=== PATIENT | female | born 1995 | race Caucasian/White ===

== ENCOUNTER 2017-01-28 13:49 | Inpatient (IN) | payer BC, MEDICAID ==
[2017-01-28] MEDS ORDERED: Misoprostol 200 MCG Tab PO PRN (14:10)
[2017-01-28] MEDS ORDERED: Butorphanol 1 MG/ML SDV IVPUSH PRN (14:10)
[2017-01-28] MEDS ORDERED: Methylergonovine 0.2 MG/1 ML Amp IM PRN (14:10)
[2017-01-28] MEDS ORDERED: Sodium Chloride 0.9% 10 ML Syringe FLUSH PRN (14:10)
[2017-01-28] MEDS ORDERED: Terbutaline 1 MG/ML SDV SUBCUT PRN (14:10)
[2017-01-28] MEDS ORDERED: Sodium Chloride 0.9% 2.5 ML Syringe FLUSH PRN (14:10)
[2017-01-28] MEDS ORDERED: Nalbuphine 10 MG/1 ML Vial IVPUSH PRN (14:10)
[2017-01-28] MEDS ORDERED: Carboprost Tromethamine 250 MCG/1 ML Amp IM PRN (14:10)
[2017-01-28] MEDS ORDERED: Calcium Gluconate 10% 1 GM/10 ML SDV IV PRN (14:10)
[2017-01-28] MEDS ORDERED: Magnesium Sulfate/Water 4 GM in Premix Bag 1 BAG IV ONE (14:10)
[2017-01-28] MEDS ORDERED: Lidocaine 1% 50 ML MDV INJECT PRN (14:10)
[2017-01-28] MEDS ORDERED: Water For Irrigation,Sterile 1,000 ML Container IRR PRN (14:10)
[2017-01-28] MEDS ORDERED: Oxytocin/Lactated Ringers 30 UNIT/500 ML BAG IV SCH ×2 (14:15)
[2017-01-28 15:03] LABS: CHLORIDE,CL 112 mmol/L (98-110); SODIUM,NA 138 mmol/L (136-146)
[2017-01-28] MEDS: Sodium Chloride 0.9% 1,000 ML IV SCH (15:04)
[2017-01-28] MEDS: Magnesium Sulfate/Water 40 GM/1,000 ML BAG IV SCH (15:18)
[2017-01-28] MEDS ORDERED: hydrOXYzine Pamoate 25 MG Cap PO PRN (18:09)
[2017-01-28] MEDS ORDERED: Acetaminophen 500 MG Tab PO PRN (22:39)
--- NOTE | 2017-01-29 04:28 | PCM.PREANE ---
Preanesthetic Assessment - Anesthesia/Transfusion/Family Hx Anesthesia History: Prior Anesthesia Without Reaction Transfusion History: No Prior Transfusion(s) - Review of Systems General: No Symptoms Pulmonary: No Symptoms Cardiovascular: No Symptoms Gastrointestinal: No symptoms Neurological: No Symptoms Other: Reports: None - Physical Assessment Height: 5 ft 9 in Weight: 215 kg ASA Class: 2 Mental Status: Alert & Oriented x3 Airway Class: Mallampati = 2 Dentition: Reports: Normal Dentition Thyro-Mental Finger Breadths: 3 Mouth Opening Finger Breadths: 3 ROM/Head Extension: Full Lungs: Clear to auscultation, Normal respiratory effort Cardiovascular: Regular Rate, Regular Rhythm - Lab Values: Laboratory Last Values WBC 10.84 K/uL (4.0-11.0) 01/28/17 14:24 RBC 3.64 M/uL (4.30-5.90) L 01/28/17 14:24 Hgb 10.5 g/dL (12.0-16.0) L 01/28/17 14:24 Hct 30.7 % (36.0-46.0) L 01/28/17 14:24 MCV 84.3 fL (80.0-98.0) 01/28/17 14:24 MCH 28.8 pg (27.0-32.0) 01/28/17 14:24 MCHC 34.2 g/dL (31.0-37.0) 01/28/17 14:24 RDW Std Deviation 39.3 fl (28.0-62.0) 01/28/17 14:24 RDW Coeff of Ryley 13 % (11.0-15.0) 01/28/17 14:24 Plt Count 214 K/uL (150-400) 01/28/17 14:24 MPV 12.30 fL (7.40-12.00) H 01/28/17 14:24 Nucleated RBC % 0.0 /100WBC 01/28/17 14:24 Nucleated RBCs # 0 K/uL 01/28/17 14:24 Sodium 138 mmol/L (136-146) 01/28/17 14:24 Potassium 3.9 mmol/L (3.5-5.1) 01/28/17 14:24 Chloride 112 mmol/L (98-110) H 01/28/17 14:24 Carbon Dioxide 17 mmol/L (21-31) L 01/28/17 14:24 BUN 13 mg/dL (6.0-23.0) 01/28/17 14:24 Creatinine 0.7 mg/dL (0.6-1.5) 01/28/17 14:24 Est Cr Clr Drug Dosing 92.85 mL/min 01/28/17 14:24 Estimated GFR (MDRD) > 60.0 ml/min 01/28/17 14:24 Glucose 76 mg/dL (60-110) 01/28/17 14:24 Uric Acid 5.6 mg/dL (2.1-6.2) 01/28/17 14:24 Calcium 8.9 mg/dL (8.8-10.8) 01/28/17 14:24 Magnesium 4.2 mEq/L (1.5-2.3) H 01/29/17 01:07 Total Bilirubin 0.3 mg/dL (0.1-1.5) 01/28/17 14:24 AST 12 IU/L (5-40) 01/28/17 14:24 ALT 8 IU/L (8-54) 01/28/17 14:24 Alkaline Phosphatase 137 (40-150) 01/28/17 14:24 Total Protein 6.9 g/dL (6.0-8.0) 01/28/17 14:24 Albumin 3.1 g/dL (3.5-5.0) L 01/28/17 14:24 Globulin 3.8 g/dL (2.0-3.5) H 01/28/17 14:24 Albumin/Globulin Ratio 0.8 (1.3-2.8) L 01/28/17 14:24 Blood Type B POSITIVE 01/28/17 14:24 Antibody Screen NEGATIVE 01/28/17 14:24 - Allergies Allergies/Adverse Reactions: Allergies Allergy/AdvReac Type Severity Reaction Status Date / Time No Known Allergies Allergy Verified 07/05/16 22:53 - Acknowledgements Anesthesia Type Planned: Epidural Pt an Appropriate Candidate for the Planned Anesthesia: Yes Alternatives and Risks of Anesthesia Discussed w Pt/Guardian: Yes Pt/Guardian Understands and Agrees with Anesthesia Plan: Yes PreAnesthesia Questionnaire HEENT History: Reports: None Cardiovascular History: Reports: None Respiratory History: Reports: Asthma (Has not used inhaler for years) Gastrointestinal History: Reports: GERD Genitourinary History: Reports: None 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: Reports: : 1 Para: 0 LMP (Approximate): Musculoskeletal History: Reports: None Neurological History: Reports: None Psychiatric History: Reports: None Endocrine/Metabolic History: Reports: None Hematologic History: Reports: None Immunologic History: Reports: None Oncologic (Cancer) History: Reports: None Dermatologic History: Reports: None - Past Surgical History HEENT Surgical History: Reports: Oral surgery ([place] teeth extraction) GI Surgical History: Reports: Cholecystectomy - SUBSTANCE USE Smoking Status *Q: Never Smoker Second Hand Smoke Exposure: No Days Per Week of Alcohol Use: 0 Recreational Drug Use History: No - HOME MEDS Home Medications: Home Meds Vit No.129/Iron/FA [ Tablet] 1 each PO DAILY 07/05/16 [History] - CURRENT (IN HOUSE) MEDS Current Meds: Current Medications Acetaminophen (Tylenol Extra Strength) 500 - 1,000 mg PO Q6H PRN PRN Reason: Headache Last Admin: 01/28/17 22:50 Dose: 1,000 mg Butorphanol Tartrate (Stadol) 1 mg IVPUSH ASDIRECTED PRN PRN Reason: Pain Calcium Gluconate (Calcium Gluconate) 1 gm IV ASDIRECTED PRN PRN Reason: respiratory distress Carboprost Tromethamine (Hemabate Ds) 250 mcg IM ASDIRECTED PRN PRN Reason: Post Hemorrhage Hydroxyzine Pamoate (Vistaril) 25 mg PO BEDTIME PRN PRN Reason: Insomnia Last Admin: 01/28/17 22:50 Dose: 25 mg Magnesium Sulfate (Magnesium Sulfate 40 Gm In Water 1000 Ml) 40 gm in 1,000 mls @ 50 mls/hr IV ASDIRECTED EDGARDO PRN Reason: 2 GM/HR Last Admin: 01/28/17 15:18 Dose: 2 gm/hr, 50 mls/hr Sodium Chloride (Normal Saline) 1,000 mls @ 125 mls/hr IV ASDIRECTED EDGARDO Last Infusion: 01/29/17 04:05 Dose: 999 mls/hr Oxytocin 30 unit/ Sodium (Chloride) 503 mls @ 2.01 mls/hr IV TITRATE EDGARDO; 2 MUNITS/MIN PRN Reason: Protocol Last Titration: 01/29/17 01:00 Dose: 12 munits/min, 12.07 mls/hr Oxytocin 30 unit/ Sodium (Chloride) 503 mls @ 1,004.99 mls/hr IV ASDIRECTED EDGARDO PRN Reason: 999 MUNITS/MIN Lidocaine HCl (Xylocaine 1%) 50 ml INJECT .ONCE PRN PRN Reason: Laceration repair Methylergonovine Maleate (Methergine) 0.2 mg IM ASDIRECTED PRN PRN Reason: Post Hemorrhage Misoprostol (Cytotec) 200 mcg PO .ONCE PRN PRN Reason: Post Hemorrhage Nalbuphine HCl (Nubain) 10 mg IVPUSH ASDIRECTED PRN PRN Reason: Pain (severe 7-10) Stop: 01/30/17 14:11 Sodium Chloride (Saline Flush) 10 ml FLUSH ASDIRECTED PRN PRN Reason: Keep Vein Open Sodium Chloride (Saline Flush) 2.5 ml FLUSH ASDIRECTED PRN PRN Reason: Keep Vein Open Sterile Water (Sterile Water For Irrigation) 1,000 ml IRR ASDIRECTED PRN PRN Reason: delivery Terbutaline Sulfate (Brethine) 0.25 mg SUBCUT ASDIRECTED PRN PRN Reason: Tacysystole Discontinued Medications Magnesium Sulfate 4 gm/ Premix 100 mls @ 300 mls/hr IV .BOLUS ONE Stop: 01/28/17 14:29 Last Admin: 01/28/17 15:00 Dose: 300 mls/hr Oxytocin/Lactated Ringer's (Pitocin In Lr 30 Units/500 Ml) 30 unit in 500 mls @ 999 mls/hr IV ASDIRECTED EDGARDO PRN Reason: 999 MUNITS/MIN Stop: 01/28/17 14:46 Oxytocin/Lactated Ringer's (Pitocin In Lr 30 Units/500 Ml) 30 unit in 500 mls @ 2 mls/hr IV TITRATE EDGARDO; 2 MUNITS/MIN PRN Reason: Protocol
[2017-01-29] MEDS ORDERED: fentaNYL 100 MCG/2 ML SDV ONE (04:34)
[2017-01-29] MEDS ORDERED: Ropivacaine HCl/PF 100 ML ONE (04:34)
[2017-01-29] MEDS: Sodium Chloride 0.9% 1,000 ML IV SCH (04:57)
[2017-01-29] MEDS: Magnesium Sulfate/Water 40 GM/1,000 ML BAG IV SCH (11:23)
[2017-01-29] MEDS ORDERED: Bisacodyl 10 MG Supp RECTAL PRN (12:37)
[2017-01-29] MEDS ORDERED: Docusate Sodium 100 MG Cap PO PRN (12:37)
[2017-01-29] MEDS ORDERED: oxyCODONE 5 MG Tab PO PRN (12:37)
[2017-01-29] MEDS ORDERED: Benzocaine/Menthol 20%-0.5% Spray 78 GM Cannister TOP PRN (12:37)
[2017-01-29] MEDS ORDERED: Misoprostol 200 MCG Tab RECTAL PRN (12:37)
[2017-01-29] MEDS ORDERED: Acetaminophen 500 MG Tab PO PRN (12:37)
[2017-01-29] MEDS ORDERED: Witch Hazel Medicated Pads 40/Jar TOP PRN (12:37)
[2017-01-29] MEDS ORDERED: Lanolin 100% Cream 7 GM Tube TOP PRN (12:37)
[2017-01-29] MEDS ORDERED: Sodium Chloride 0.9% 2.5 ML Syringe FLUSH PRN (12:41)
[2017-01-29] MEDS ORDERED: Calcium Gluconate 10% 1 GM/10 ML SDV IV PRN (12:41)
[2017-01-29] MEDS ORDERED: Sodium Chloride 0.9% 10 ML Syringe FLUSH PRN (12:41)
[2017-01-29] MEDS ORDERED: Magnesium Sulfate/Water 40 GM/1,000 ML BAG IV SCH (12:45)
--- NOTE | 2017-01-29 14:28 | PCM48HPAN ---
Post Anesthesia Note - EVALUATION WITHIN 48HRS OF ANESTHETIC Vital Signs in Normal Range: Yes Patient Participated in Evaluation: Yes Respiratory Function Stable: Yes Airway Patent: Yes Cardiovascular Function Stable: Yes Hydration Status Stable: Yes Pain Control Satisfactory: Yes Nausea and Vomiting Control Satisfactory: Yes Mental Status Recovered: Yes
[2017-01-29] MEDS: Ibuprofen 800 MG Tab PO PRN (14:36)
--- NOTE | 2017-01-29 18:26 | PCM.PNPP ---
- General Info Functional Status: Reports: pain controlled, ambulating (dizzy on magnesium). Denies: tolerating diet (on clear liquids, no nausea) - Review of Systems General: Reports: No Symptoms HEENT: Reports: no symptoms Pulmonary: Reports: no symptoms Cardiovascular: Reports: No Symptoms Gastrointestinal: Reports: No symptoms Genitourinary: Reports: no symptoms Musculoskeletal: Reports: no symptoms Skin: Reports: no symptoms Neurological: Reports: Dizziness (some blurred vision.) Psychiatric: Reports: no symptoms - Patient Data Weight - most recent: 215 kg I&O - last 24 hours: Intake & Output 01/29/17 01/29/17 01/29/17 06:59 14:59 22:59 Intake Total 1000 Balance 1000 Lab Results - last 24 hrs: Laboratory Results - last 24 hr 01/28/17 01/29/17 01/29/17 Range/Units 19:37 01:07 07:04 Magnesium 3.5 H 4.2 H 4.9 H (1.5-2.3) mEq/L 01/29/17 Range/Units 13:02 Magnesium 4.0 H (1.5-2.3) mEq/L Med Orders - Current: Current Medications Acetaminophen (Tylenol Extra Strength) 1,000 mg PO Q4H PRN PRN Reason: Pain Last Admin: 01/29/17 17:15 Dose: 1,000 mg Benzocaine/Menthol (Dermoplast Pain Relief 20%-0.5% [place]) 78 gm TOP ASDIRECTED PRN PRN Reason: Perineal Comfort Measure Last Admin: 01/29/17 14:36 Dose: 1 can Bisacodyl (Dulcolax) 10 mg RECTAL .ONCE PRN PRN Reason: Constipation Calcium Gluconate (Calcium Gluconate) 1 gm IV ASDIRECTED PRN PRN Reason: respiratory distress Docusate Sodium (Colace) 100 mg PO BID PRN PRN Reason: Constipation Emollient Ointment (Lansinoh Hpa) 0 gm TOP ASDIRECTED PRN PRN Reason: Sore Nipples Last Admin: 01/29/17 14:37 Dose: 1 tube Magnesium Sulfate (Magnesium Sulfate 40 Gm In Water 1000 Ml) 40 gm in 1,000 mls @ 50 mls/hr IV ASDIRECTED EDGARDO; 2 GM/HR PRN Reason: Protocol Ibuprofen (Motrin) 800 mg PO Q6H PRN PRN Reason: Pain Last Admin: 01/29/17 14:36 Dose: 800 mg Measles/Mumps/Rubella Vaccine Live (M-M-R Ii Vaccine) 0.5 ml SUBCUT .ONCE ONE Stop: 01/30/17 15:06 Misoprostol (Cytotec) 1,000 mcg RECTAL .ONCE PRN PRN Reason: excessive vaginal bleeding Oxycodone HCl (Oxycodone) 5 mg PO Q2H PRN PRN Reason: Pain Last Admin: 01/29/17 17:14 Dose: 5 mg Sodium Chloride (Saline Flush) 10 ml FLUSH ASDIRECTED PRN PRN Reason: Keep Vein Open Sodium Chloride (Saline Flush) 2.5 ml FLUSH ASDIRECTED PRN PRN Reason: Keep Vein Open Witch Salma (Tucks) 1 pad TOP ASDIRECTED PRN PRN Reason: comfort care Discontinued Medications Acetaminophen (Tylenol Extra Strength) 500 - 1,000 mg PO Q6H PRN PRN Reason: Headache Last Admin: 01/28/17 22:50 Dose: 1,000 mg Butorphanol Tartrate (Stadol) 1 mg IVPUSH ASDIRECTED PRN PRN Reason: Pain Calcium Gluconate (Calcium Gluconate) 1 gm IV ASDIRECTED PRN PRN Reason: respiratory distress Carboprost Tromethamine (Hemabate Ds) 250 mcg IM ASDIRECTED PRN PRN Reason: Post Hemorrhage Fentanyl (Sublimaze) Confirm Administered Dose 100 mcg .ROUTE .STK-MED ONE Stop: 01/29/17 04:35 Hydroxyzine Pamoate (Vistaril) 25 mg PO BEDTIME PRN PRN Reason: Insomnia Last Admin: 01/28/17 22:50 Dose: 25 mg Magnesium Sulfate 4 gm/ Premix 100 mls @ 300 mls/hr IV .BOLUS ONE Stop: 01/28/17 14:29 Last Admin: 01/28/17 15:00 Dose: 300 mls/hr Magnesium Sulfate (Magnesium Sulfate 40 Gm In Water 1000 Ml) 40 gm in 1,000 mls @ 50 mls/hr IV ASDIRECTED EDGARDO PRN Reason: 2 GM/HR Last Admin: 01/29/17 11:23 Dose: 2 gm/hr, 50 mls/hr Oxytocin/Lactated Ringer's (Pitocin In Lr 30 Units/500 Ml) 30 unit in 500 mls @ 999 mls/hr IV ASDIRECTED EDGARDO PRN Reason: 999 MUNITS/MIN Stop: 01/28/17 14:46 Last Admin: 01/29/17 12:15 Dose: 999 munits/min, 999 mls/hr Oxytocin/Lactated Ringer's (Pitocin In Lr 30 Units/500 Ml) 30 unit in 500 mls @ 2 mls/hr IV TITRATE EDGARDO; 2 MUNITS/MIN PRN Reason: Protocol Sodium Chloride (Normal Saline) 1,000 mls @ 125 mls/hr IV ASDIRECTED EDGARDO Last Admin: 01/29/17 04:57 Dose: 5 mls/hr Oxytocin 30 unit/ Sodium (Chloride) 503 mls @ 2.01 mls/hr IV TITRATE EDGARDO; 2 MUNITS/MIN PRN Reason: Protocol Last Titration: 01/29/17 11:57 Dose: 999 mls/hr Oxytocin 30 unit/ Sodium (Chloride) 503 mls @ 1,004.99 mls/hr IV ASDIRECTED EDGARDO PRN Reason: 999 MUNITS/MIN Ropivacaine (Naropin 0.2%) Confirm Administered Dose 100 mls @ as directed .ROUTE .[email or web address] ONE Stop: 01/29/17 04:35 Lidocaine HCl (Xylocaine 1%) 50 ml INJECT .ONCE PRN PRN Reason: Laceration repair Methylergonovine Maleate (Methergine) 0.2 mg IM ASDIRECTED PRN PRN Reason: Post Hemorrhage Misoprostol (Cytotec) 200 mcg PO .ONCE PRN PRN Reason: Post Hemorrhage Nalbuphine HCl (Nubain) 10 mg IVPUSH ASDIRECTED PRN PRN Reason: Pain (severe 7-10) Stop: 01/30/17 14:11 Sodium Chloride (Saline Flush) 10 ml FLUSH ASDIRECTED PRN PRN Reason: Keep Vein Open Sodium Chloride (Saline Flush) 2.5 ml FLUSH ASDIRECTED PRN PRN Reason: Keep Vein Open Sterile Water (Sterile Water For Irrigation) 1,000 ml IRR ASDIRECTED PRN PRN Reason: delivery Last Admin: 01/29/17 11:56 Dose: 1,000 ml Terbutaline Sulfate (Brethine) 0.25 mg SUBCUT ASDIRECTED PRN PRN Reason: Tacysystole - Infant Interaction Infant Disposition, : [place] in Room with Family Infant Feeding: Attempted ; Nursed Fair/Poor Support Person: Significant Other - Recovery Exam Fundal Tone: Firm Fundal Level: 1 Fingerbreadths Below Umbilicus - Exam General: alert, oriented Lungs: Clear to auscultation, Normal respiratory effort Cardiovascular: Regular Rate, Regular Rhythm Abdomen: bowel sounds present, soft, no tenderness, no distension Extremities: No: no edema (2+ improving) Skin: warm, dry, intact Psy/Mental Status: alert, normal affect, normal mood - Problem List & Annotations (1) Pre-eclampsia, delivered SNOMED Code(s): 069988555 Code(s): O14.94 - UNSPECIFIED PRE-ECLAMPSIA, COMPLICATING CHILDBIRTH Status : Acute Current Visit: Yes - Problem List Review Problem List Initiated/Reviewed/Updated: Yes - My Orders Last 24 Hours: My Active Orders 01/29/17 12:37 Acetaminophen [Tylenol Extra Strength] 1,000 mg PO Q4H PRN Benzocaine/Menthol [Dermoplast Pain Relief 20%-0.5% [place]] 78 gm TOP ASDIRECTED PRN Bisacodyl [Dulcolax] 10 mg RECTAL .ONCE PRN Docusate Sodium [Colace] 100 mg PO BID PRN Ibuprofen [Motrin] 800 mg PO Q6H PRN Lanolin [Lansinoh HPA] See Dose Instructions TOP ASDIRECTED PRN Misoprostol [Cytotec] 1,000 mcg RECTAL .ONCE PRN Witch [place] [Tucks] 1 pad TOP ASDIRECTED PRN oxyCODONE 5 mg PO Q2H PRN Resuscitation Status Routine 01/29/17 12:38 Patient Status [ADT] Routine May Shower [RC] ASDIRECTED Up ad Katya [RC] ASDIRECTED Vital Signs [RC] PER UNIT ROUTINE Assess Lochia [WOMSER] Per Unit Routine Assess Uterine Involution [WOMSER] Per Unit Routine Peripheral IV Discontinue [OM.PC] Routine 01/29/17 12:40 Perineal Care [OM.PC] Per Unit Routine 01/29/17 12:41 Bedrest [RC] ASDIRECTED Communication Order [RC] PRN Equipment to Bedside [RC] PRN Height and Weight [RC] DAILY Intake and Output [RC] QSHIFT Notify Provider Status Change [RC] ASDIRECTED Notify Provider [RC] PRN Vital Signs [RC] ASDIRECTED Calcium Gluconate 1 gm IV ASDIRECTED PRN Sodium Chloride 0.9% [Saline Flush] 10 ml FLUSH ASDIRECTED PRN Sodium Chloride 0.9% [Saline Flush] 2.5 ml FLUSH ASDIRECTED PRN Peripheral IV Insertion Adult [OM.PC] Routine 01/29/17 12:45 Magnesium Sulfate/Water [Magnesium Sulfate 40 GM in Water 1000 ML] 40 gm in 1, 000 ml IV ASDIRECTED Deep Tendon Reflexes [WOMSER] [facility] 01/29/17 13:45 Deep Tendon Reflexes [WOMSER] [facility] 01/29/17 14:45 Deep Tendon Reflexes [WOMSER] [facility] 01/29/17 15:06 Vaccines to be Administered [RC] PER UNIT ROUTINE 01/29/17 15:45 Deep Tendon Reflexes [WOMSER] [facility] 01/29/17 16:45 Deep Tendon Reflexes [WOMSER] [facility] 01/29/17 17:45 Deep Tendon Reflexes [WOMSER] [facility] 01/29/17 18:45 MAGNESIUM [CHEM] Q6H Deep Tendon Reflexes [WOMSER] [facility] 01/29/17 19:45 Deep Tendon Reflexes [WOMSER] [facility] 01/29/17 20:45 Deep Tendon Reflexes [WOMSER] [facility] 01/29/17 21:45 Deep Tendon Reflexes [WOMSER] [facility] 01/29/17 22:45 Deep Tendon Reflexes [WOMSER] [facility] 01/29/17 23:45 Deep Tendon Reflexes [WOMSER] [facility] 01/30/17 00:45 MAGNESIUM [CHEM] Q6H Deep Tendon Reflexes [WOMSER] [facility] 01/30/17 01:45 Deep Tendon Reflexes [WOMSER] [facility] 01/30/17 02:45 Deep Tendon Reflexes [WOMSER] [facility] 01/30/17 03:45 Deep Tendon Reflexes [WOMSER] [facility] 01/30/17 04:45 Deep Tendon Reflexes [WOMSER] [facility] 01/30/17 05:11 HEMOGLOBIN/HEMATOCRIT,HH [HEME] Timed 01/30/17 05:45 Deep Tendon Reflexes [WOMSER] [facility] 01/30/17 06:45 MAGNESIUM [CHEM] Q6H Deep Tendon Reflexes [WOMSER] Q1H 01/30/17 07:45 Deep Tendon Reflexes [WOMSER] Q1H 01/30/17 08:45 Deep Tendon Reflexes [WOMSER] Q1H 01/30/17 09:45 Deep Tendon Reflexes [WOMSER] Q1H 01/30/17 10:45 Deep Tendon Reflexes [WOMSER] Q1H 01/30/17 11:45 Deep Tendon Reflexes [WOMSER] Q1H 01/30/17 12:45 MAGNESIUM [CHEM] Q6H 01/30/17 15:05 Measles, Mumps & Rubella [M-M-R II Vaccine] 0.5 ml SUBCUT .ONCE ONE - Assessment Assessment:: PPD0 induction for preeclampsia, denies shortness of breath, vitals stable, urine output 900 ml since delivery - Plan Plan:: Continue magnesium, continue care.
--- NOTE | 2017-01-29 20:50 | OR ---
SURGEON: Angela Zaman M.D. DATE OF PROCEDURE: 01/29/2017 Delivery Note PREOPERATIVE DIAGNOSES: A 38 and 4/7th week intrauterine , mild preeclampsia. POSTOPERATIVE DIAGNOSIS: A 38 and 4/7th week intrauterine , mild preeclampsia. PROCEDURE: Pitocin induction of labor. Magnesium seizure prophylaxis. Term spontaneous vaginal delivery. Repair of second-degree laceration. ANESTHESIA: Epidural. ESTIMATED BLOOD LOSS: Less than 300 mL. FINDINGS: Live born male, score 9 and 9, weighing 3830 g. Placenta spontaneous, Schultze intact, with 3 vessels. Second-degree perineal laceration repaired. COMPLICATIONS: None known. DISPOSITION: Mother and baby in LDRP in good condition. BRIEF HISTORY: This is a 21-year-old female, G1, P0. She presented to the clinic at 38 and 3/7th weeks' gestation having had labile blood pressures with a 24-hour urine collection resulting in 610 mg of total protein excreted in 24 hours. She denied headache or visual changes but due to the elevated proteinuria, decision was made to proceed with induction of labor. She was initially 2 cm, 70%, minus 2 station. She received Pitocin IV. She had category 1 heart tones. Her blood pressures remained in the 130s to 140s over 70s to 90s throughout labor. She received magnesium for seizure prophylaxis. She was group B strep negative. She had spontaneous rupture of membranes at approximately 2:00 a.m. and she progressed to complete at approximately 8:30 a.m. DESCRIPTION OF PROCEDURE: With the patient in dorsal lithotomy position, the patient pushed over 3 hours and 15-minute time period to a 5+ station at which time the head was delivered spontaneously and atraumatically over the perineum with support with subsequent delivery of the 's shoulders and body without any difficulty. The was handed to the mother in the presence of the nurse attending delivery. The infant was a liveborn male, score 9 and 9, weighing 3830 g. After the cord had ceased to pulsate, it was doubly clamped and cut. Cord blood was collected for cord ABGs as well as routine cord blood sampling. Pitocin was initiated after delivery of the to assist with delivery of the placenta which was delivered spontaneously, Schultze intact with 3 vessels. Upon inspection the pelvis and perineum, there were no periurethral, vaginal sidewall, cervical, or rectal lacerations. There was a very small perineal laceration that was second-degree and utilizing a running lock suture of 3-0 Caprosyn for the vaginal mucosa and then continuing the same suture for the deep perineal tissue and a running subcuticular suture with the same suture for the skin. Final sponge, needle, and instrument counts were correct. There were no known complications. The infant and mother remained in LDRP in good condition. TANVI / GEOVANNI /[id number]
--- NOTE | 2017-01-30 08:27 | PCM.PNPP ---
- General Info Date of Service: 01/30/17 Functional Status: Reports: pain controlled, tolerating diet. Denies: ambulating (on magnesium), urinating (catheter in place.) - Review of Systems General: Reports: No Symptoms HEENT: Reports: visual changes (improved since magnesium decreased to 1 gram per hour. ) Pulmonary: Reports: no symptoms Cardiovascular: Reports: No Symptoms Gastrointestinal: Reports: No symptoms Genitourinary: Reports: no symptoms Musculoskeletal: Reports: no symptoms Skin: Reports: no symptoms Neurological: Reports: Dizziness Psychiatric: Reports: no symptoms - Patient Data Vital Signs - most recent: Last Vital Signs Temp 36.4 C 01/30/17 04:00 Pulse 63 01/30/17 04:00 Resp 14 01/30/17 04:00 BP 113/55 L 01/30/17 04:00 Pulse Ox 97 01/30/17 04:00 Weight - most recent: 215 kg I&O - last 24 hours: Intake & Output 01/29/17 01/30/17 01/30/17 22:59 06:59 14:59 Intake Total 458 Output Total 1505 Balance -1047 Lab Results - last 24 hrs: Laboratory Results - last 24 hr 01/29/17 01/29/17 01/30/17 Range/Units 13:02 18:42 00:38 Hgb (12.0-16.0) g/dL Hct (36.0-46.0) % Magnesium 4.0 H 4.8 H 6.5 H (1.5-2.3) mEq/L 01/30/17 01/30/17 Range/Units 06:32 06:32 Hgb 7.8 L (12.0-16.0) g/dL Hct 23.0 L (36.0-46.0) % Magnesium 5.2 H (1.5-2.3) mEq/L Med Orders - Current: Current Medications Acetaminophen (Tylenol Extra Strength) 1,000 mg PO Q4H PRN PRN Reason: Pain Last Admin: 01/29/17 17:15 Dose: 1,000 mg Benzocaine/Menthol (Dermoplast Pain Relief 20%-0.5% [place]) 78 gm TOP ASDIRECTED PRN PRN Reason: Perineal Comfort Measure Last Admin: 01/29/17 14:36 Dose: 1 can Bisacodyl (Dulcolax) 10 mg RECTAL .ONCE PRN PRN Reason: Constipation Calcium Gluconate (Calcium Gluconate) 1 gm IV ASDIRECTED PRN PRN Reason: respiratory distress Docusate Sodium (Colace) 100 mg PO BID PRN PRN Reason: Constipation Emollient Ointment (Lansinoh Hpa) 0 gm TOP ASDIRECTED PRN PRN Reason: Sore Nipples Last Admin: 01/29/17 14:37 Dose: 1 tube Magnesium Sulfate (Magnesium Sulfate 40 Gm In Water 1000 Ml) 40 gm in 1,000 mls @ 50 mls/hr IV ASDIRECTED EDGARDO; 2 GM/HR PRN Reason: Protocol Ibuprofen (Motrin) 800 mg PO Q6H PRN PRN Reason: Pain Last Admin: 01/29/17 14:36 Dose: 800 mg Measles/Mumps/Rubella Vaccine Live (M-M-R Ii Vaccine) 0.5 ml SUBCUT .ONCE ONE Stop: 01/30/17 15:06 Misoprostol (Cytotec) 1,000 mcg RECTAL .ONCE PRN PRN Reason: excessive vaginal bleeding Oxycodone HCl (Oxycodone) 5 mg PO Q2H PRN PRN Reason: Pain Last Admin: 01/29/17 17:14 Dose: 5 mg Sodium Chloride (Saline Flush) 10 ml FLUSH ASDIRECTED PRN PRN Reason: Keep Vein Open Sodium Chloride (Saline Flush) 2.5 ml FLUSH ASDIRECTED PRN PRN Reason: Keep Vein Open Witch Salma (Tucks) 1 pad TOP ASDIRECTED PRN PRN Reason: comfort care Discontinued Medications Acetaminophen (Tylenol Extra Strength) 500 - 1,000 mg PO Q6H PRN PRN Reason: Headache Last Admin: 01/28/17 22:50 Dose: 1,000 mg Butorphanol Tartrate (Stadol) 1 mg IVPUSH ASDIRECTED PRN PRN Reason: Pain Calcium Gluconate (Calcium Gluconate) 1 gm IV ASDIRECTED PRN PRN Reason: respiratory distress Carboprost Tromethamine (Hemabate Ds) 250 mcg IM ASDIRECTED PRN PRN Reason: Post Hemorrhage Fentanyl (Sublimaze) Confirm Administered Dose 100 mcg .ROUTE .STK-MED ONE Stop: 01/29/17 04:35 Hydroxyzine Pamoate (Vistaril) 25 mg PO BEDTIME PRN PRN Reason: Insomnia Last Admin: 01/28/17 22:50 Dose: 25 mg Magnesium Sulfate 4 gm/ Premix 100 mls @ 300 mls/hr IV .BOLUS ONE Stop: 01/28/17 14:29 Last Admin: 01/28/17 15:00 Dose: 300 mls/hr Magnesium Sulfate (Magnesium Sulfate 40 Gm In Water 1000 Ml) 40 gm in 1,000 mls @ 50 mls/hr IV ASDIRECTED EDGARDO PRN Reason: 2 GM/HR Last Infusion: 01/30/17 03:00 Dose: 1 gm/hr, 25 mls/hr Oxytocin/Lactated Ringer's (Pitocin In Lr 30 Units/500 Ml) 30 unit in 500 mls @ 999 mls/hr IV ASDIRECTED EDGARDO PRN Reason: 999 MUNITS/MIN Stop: 01/28/17 14:46 Last Admin: 01/29/17 12:15 Dose: 999 munits/min, 999 mls/hr Oxytocin/Lactated Ringer's (Pitocin In Lr 30 Units/500 Ml) 30 unit in 500 mls @ 2 mls/hr IV TITRATE EDGARDO; 2 MUNITS/MIN PRN Reason: Protocol Sodium Chloride (Normal Saline) 1,000 mls @ 125 mls/hr IV ASDIRECTED EDGARDO Last Admin: 01/29/17 04:57 Dose: 5 mls/hr Oxytocin 30 unit/ Sodium (Chloride) 503 mls @ 2.01 mls/hr IV TITRATE EDGARDO; 2 MUNITS/MIN PRN Reason: Protocol Last Titration: 01/29/17 11:57 Dose: 999 mls/hr Oxytocin 30 unit/ Sodium (Chloride) 503 mls @ 1,004.99 mls/hr IV ASDIRECTED EDGARDO PRN Reason: 999 MUNITS/MIN Ropivacaine (Naropin 0.2%) Confirm Administered Dose 100 mls @ as directed .ROUTE .STK-MED ONE Stop: 01/29/17 04:35 Lidocaine HCl (Xylocaine 1%) 50 ml INJECT .ONCE PRN PRN Reason: Laceration repair Methylergonovine Maleate (Methergine) 0.2 mg IM ASDIRECTED PRN PRN Reason: Post Hemorrhage Misoprostol (Cytotec) 200 mcg PO .ONCE PRN PRN Reason: Post Hemorrhage Nalbuphine HCl (Nubain) 10 mg IVPUSH ASDIRECTED PRN PRN Reason: Pain (severe 7-10) Stop: 01/30/17 14:11 Sodium Chloride (Saline Flush) 10 ml FLUSH ASDIRECTED PRN PRN Reason: Keep Vein Open Sodium Chloride (Saline Flush) 2.5 ml FLUSH ASDIRECTED PRN PRN Reason: Keep Vein Open Sterile Water (Sterile Water For Irrigation) 1,000 ml IRR ASDIRECTED PRN PRN Reason: delivery Last Admin: 01/29/17 11:56 Dose: 1,000 ml Terbutaline Sulfate (Brethine) 0.25 mg SUBCUT ASDIRECTED PRN PRN Reason: Tacysystole - Interaction Disposition, : [place] in Room with Family Feeding: Attempted ; Nursed Fair/Poor Support Person: Significant Other - Recovery Exam Fundal Tone: Firm Fundal Level: At Umbilicus Lochia Amount: Small Lochia Color: Rubra/Red Perineum Description: Other (see below) Other Perinuem Description: 2nd degree laceration Episiotomy/Laceration: Approximated Bladder Status: Indwelling Catheter in Place Urinary Elimination: Indwelling Catheter - Exam General: alert, oriented HEENT: Pupils equal Neck: supple Cardiovascular: Regular Rate, Regular Rhythm Abdomen: bowel sounds present, soft, no tenderness, no distension Extremities: No: no edema (+ edema bilaterally, improved) Skin: warm, dry, intact Wound/Incisions: healing well Neurological: no new focal deficit Psy/Mental Status: alert, normal affect, normal mood, other (discussed social service case closed from pending charges.) - Problem List & Annotations (1) Pre-eclampsia, delivered SNOMED Code(s): 110363067 Code(s): O14.94 - UNSPECIFIED PRE-ECLAMPSIA, COMPLICATING CHILDBIRTH Status : Acute Current Visit: Yes - Problem List Review Problem List Initiated/Reviewed/Updated: Yes - My Orders Last 24 Hours: My Active Orders 01/29/17 12:37 Acetaminophen [Tylenol Extra Strength] 1,000 mg PO Q4H PRN Benzocaine/Menthol [Dermoplast Pain Relief 20%-0.5% [place]] 78 gm TOP ASDIRECTED PRN Bisacodyl [Dulcolax] 10 mg RECTAL .ONCE PRN Docusate Sodium [Colace] 100 mg PO BID PRN Ibuprofen [Motrin] 800 mg PO Q6H PRN Lanolin [Lansinoh HPA] See Dose Instructions TOP ASDIRECTED PRN Misoprostol [Cytotec] 1,000 mcg RECTAL .ONCE PRN Witch Salma [Tucks] 1 pad TOP ASDIRECTED PRN oxyCODONE 5 mg PO Q2H PRN Resuscitation Status Routine 01/29/17 12:38 Patient Status [ADT] Routine May Shower [RC] ASDIRECTED Up ad Katya [RC] ASDIRECTED Vital Signs [RC] PER UNIT ROUTINE Assess Lochia [WOMSER] Per Unit Routine Assess Uterine Involution [WOMSER] Per Unit Routine Peripheral IV Discontinue [OM.PC] Routine 01/29/17 12:40 Perineal Care [OM.PC] Per Unit Routine 01/29/17 12:41 Bedrest [RC] ASDIRECTED Communication Order [RC] PRN Equipment to Bedside [RC] PRN Height and Weight [RC] DAILY Intake and Output [RC] QSHIFT Notify Provider Status Change [RC] ASDIRECTED Notify Provider [RC] PRN Vital Signs [RC] ASDIRECTED Calcium Gluconate 1 gm IV ASDIRECTED PRN Sodium Chloride 0.9% [Saline Flush] 10 ml FLUSH ASDIRECTED PRN Sodium Chloride 0.9% [Saline Flush] 2.5 ml FLUSH ASDIRECTED PRN Peripheral IV Insertion Adult [OM.PC] Routine 01/29/17 12:45 Magnesium Sulfate/Water [Magnesium Sulfate 40 GM in Water 1000 ML] 40 gm in 1, 000 ml IV ASDIRECTED Deep Tendon Reflexes [WOMSER] Q1H 01/29/17 13:45 Deep Tendon Reflexes [WOMSER] Q1H 01/29/17 14:45 Deep Tendon Reflexes [WOMSER] Q1H 01/29/17 15:06 Vaccines to be Administered [RC] PER UNIT ROUTINE 01/29/17 15:45 Deep Tendon Reflexes [WOMSER] Q1H 01/29/17 16:45 Deep Tendon Reflexes [WOMSER] Q1H 01/29/17 17:45 Deep Tendon Reflexes [WOMSER] Q1H 01/29/17 18:45 Deep Tendon Reflexes [WOMSER] Q1H 01/29/17 19:45 Deep Tendon Reflexes [WOMSER] [facility] 01/29/17 20:45 Deep Tendon Reflexes [WOMSER] [facility] 01/29/17 21:45 Deep Tendon Reflexes [WOMSER] [facility] 01/29/17 22:45 Deep Tendon Reflexes [WOMSER] [facility] 01/29/17 23:45 Deep Tendon Reflexes [WOMSER] [facility] 01/30/17 00:45 Deep Tendon Reflexes [WOMSER] [facility] 01/30/17 01:45 Deep Tendon Reflexes [WOMSER] [facility] 01/30/17 02:45 Deep Tendon Reflexes [WOMSER] [facility] 01/30/17 03:45 Deep Tendon Reflexes [WOMSER] [facility] 01/30/17 04:45 Deep Tendon Reflexes [WOMSER] [facility] 01/30/17 05:45 Deep Tendon Reflexes [WOMSER] [facility] 01/30/17 06:45 Deep Tendon Reflexes [WOMSER] [facility] 01/30/17 07:45 Deep Tendon Reflexes [WOMSER] [facility] 01/30/17 08:45 Deep Tendon Reflexes [WOMSER] [facility] 01/30/17 09:45 Deep Tendon Reflexes [WOMSER] [facility] 01/30/17 10:45 Deep Tendon Reflexes [WOMSER] [facility] 01/30/17 11:45 Deep Tendon Reflexes [WOMSER] [facility] 01/30/17 12:45 MAGNESIUM [CHEM] Q6 01/30/17 15:05 Measles, Mumps & Rubella [M-M-R II Vaccine] 0.5 ml SUBCUT .ONCE ONE - Assessment Assessment:: PPD1 induction for preeclampsia, denies shortness of breath, vitals stable, good diuresis, visual changes resolved since mg decreased. - Plan Plan:: Continue magnesium until 11 am, then may ambulate with assist, patient was anemic prior to delivery, normal drop in hemoglobin, but discussed precautions, recheck hgb in am. continue care.
[2017-01-30] MEDS: Ibuprofen 800 MG Tab PO PRN (13:16)
[2017-01-30] MEDS ORDERED: Measles, Mumps & Rubella Vaccine 0.5 ML SDV SUBCUT ONE (15:05)
--- NOTE | 2017-01-31 09:06 | PCM.PNPP ---
- General Info Date of Service: 01/31/17 Functional Status: Reports: pain controlled, tolerating diet, ambulating ( denies any dizziness, shortness of breath or palpitations), urinating - Review of Systems General: Reports: No Symptoms HEENT: Reports: no symptoms Pulmonary: Reports: no symptoms Cardiovascular: Reports: No Symptoms Gastrointestinal: Reports: No symptoms Genitourinary: Reports: no symptoms Musculoskeletal: Reports: no symptoms Skin: Reports: no symptoms Neurological: Reports: No Symptoms Psychiatric: Reports: no symptoms - Patient Data Vital Signs - most recent: Last Vital Signs Temp 37.0 C 01/31/17 04:00 Pulse 111 H 01/31/17 04:00 Resp 15 01/31/17 04:00 BP 119/64 01/31/17 04:00 Pulse Ox 96 01/31/17 04:00 Weight - most recent: 215 kg I&O - last 24 hours: Intake & Output 01/30/17 01/31/17 01/31/17 22:59 06:59 14:59 Intake Total 700 Output Total 1060 Balance -360 Lab Results - last 24 hrs: Laboratory Results - last 24 hr 01/31/17 Range/Units 06:15 Hgb 6.7 L (12.0-16.0) g/dL Hct 20.0 L (36.0-46.0) % Med Orders - Current: Current Medications Acetaminophen (Tylenol Extra Strength) 1,000 mg PO Q4H PRN PRN Reason: Pain Last Admin: 01/29/17 17:15 Dose: 1,000 mg Benzocaine/Menthol (Dermoplast Pain Relief 20%-0.5% [place]) 78 gm TOP ASDIRECTED PRN PRN Reason: Perineal Comfort Measure Last Admin: 01/29/17 14:36 Dose: 1 can Bisacodyl (Dulcolax) 10 mg RECTAL .ONCE PRN PRN Reason: Constipation Docusate Sodium (Colace) 100 mg PO BID PRN PRN Reason: Constipation Emollient Ointment (Lansinoh Hpa) 0 gm TOP ASDIRECTED PRN PRN Reason: Sore Nipples Last Admin: 01/29/17 14:37 Dose: 1 tube Ibuprofen (Motrin) 800 mg PO Q6H PRN PRN Reason: Pain Last Admin: 01/30/17 13:16 Dose: 800 mg Misoprostol (Cytotec) 1,000 mcg RECTAL .ONCE PRN PRN Reason: excessive vaginal bleeding Oxycodone HCl (Oxycodone) 5 mg PO Q2H PRN PRN Reason: Pain Last Admin: 01/29/17 17:14 Dose: 5 mg Sodium Chloride (Saline Flush) 10 ml FLUSH ASDIRECTED PRN PRN Reason: Keep Vein Open Sodium Chloride (Saline Flush) 2.5 ml FLUSH ASDIRECTED PRN PRN Reason: Keep Vein Open Witch Salma (Tucks) 1 pad TOP ASDIRECTED PRN PRN Reason: comfort care Discontinued Medications Acetaminophen (Tylenol Extra Strength) 500 - 1,000 mg PO Q6H PRN PRN Reason: Headache Last Admin: 01/28/17 22:50 Dose: 1,000 mg Butorphanol Tartrate (Stadol) 1 mg IVPUSH ASDIRECTED PRN PRN Reason: Pain Calcium Gluconate (Calcium Gluconate) 1 gm IV ASDIRECTED PRN PRN Reason: respiratory distress Calcium Gluconate (Calcium Gluconate) 1 gm IV ASDIRECTED PRN PRN Reason: respiratory distress Carboprost Tromethamine (Hemabate Ds) 250 mcg IM ASDIRECTED PRN PRN Reason: Post Hemorrhage Fentanyl (Sublimaze) Confirm Administered Dose 100 mcg .ROUTE .STK-MED ONE Stop: 01/29/17 04:35 Last Admin: 01/30/17 10:30 Dose: Not Given Hydroxyzine Pamoate (Vistaril) 25 mg PO BEDTIME PRN PRN Reason: Insomnia Last Admin: 01/28/17 22:50 Dose: 25 mg Magnesium Sulfate 4 gm/ Premix 100 mls @ 300 mls/hr IV .BOLUS ONE Stop: 01/28/17 14:29 Last Admin: 01/28/17 15:00 Dose: 300 mls/hr Magnesium Sulfate (Magnesium Sulfate 40 Gm In Water 1000 Ml) 40 gm in 1,000 mls @ 50 mls/hr IV ASDIRECTED EDGARDO PRN Reason: 2 GM/HR Last Infusion: 01/30/17 03:00 Dose: 1 gm/hr, 25 mls/hr Oxytocin/Lactated Ringer's (Pitocin In Lr 30 Units/500 Ml) 30 unit in 500 mls @ 999 mls/hr IV ASDIRECTED EDGARDO PRN Reason: 999 MUNITS/MIN Stop: 01/28/17 14:46 Last Admin: 01/29/17 12:15 Dose: 999 munits/min, 999 mls/hr Oxytocin/Lactated Ringer's (Pitocin In Lr 30 Units/500 Ml) 30 unit in 500 mls @ 2 mls/hr IV TITRATE EDGARDO; 2 MUNITS/MIN PRN Reason: Protocol Sodium Chloride (Normal Saline) 1,000 mls @ 125 mls/hr IV ASDIRECTED EDGARDO Last Admin: 01/29/17 04:57 Dose: 5 mls/hr Oxytocin 30 unit/ Sodium (Chloride) 503 mls @ 2.01 mls/hr IV TITRATE EDGARDO; 2 MUNITS/MIN PRN Reason: Protocol Last Titration: 01/29/17 11:57 Dose: 999 mls/hr Oxytocin 30 unit/ Sodium (Chloride) 503 mls @ 1,004.99 mls/hr IV ASDIRECTED EDGARDO PRN Reason: 999 MUNITS/MIN Ropivacaine (Naropin 0.2%) Confirm Administered Dose 100 mls @ as directed .ROUTE .[facility]-MED ONE Stop: 01/29/17 04:35 Last Admin: 01/30/17 10:30 Dose: Not Given Magnesium Sulfate (Magnesium Sulfate 40 Gm In Water 1000 Ml) 40 gm in 1,000 mls @ 50 mls/hr IV ASDIRECTED EDGARDO; 2 GM/HR PRN Reason: Protocol Stop: 01/30/17 11:00 Lidocaine HCl (Xylocaine 1%) 50 ml INJECT .ONCE PRN PRN Reason: Laceration repair Measles/Mumps/Rubella Vaccine Live (M-M-R Ii Vaccine) 0.5 ml SUBCUT .ONCE ONE Stop: 01/30/17 15:06 Methylergonovine Maleate (Methergine) 0.2 mg IM ASDIRECTED PRN PRN Reason: Post Hemorrhage Misoprostol (Cytotec) 200 mcg PO .ONCE PRN PRN Reason: Post Hemorrhage Nalbuphine HCl (Nubain) 10 mg IVPUSH ASDIRECTED PRN PRN Reason: Pain (severe 7-10) Stop: 01/30/17 14:11 Sodium Chloride (Saline Flush) 10 ml FLUSH ASDIRECTED PRN PRN Reason: Keep Vein Open Sodium Chloride (Saline Flush) 2.5 ml FLUSH ASDIRECTED PRN PRN Reason: Keep Vein Open Sterile Water (Sterile Water For Irrigation) 1,000 ml IRR ASDIRECTED PRN PRN Reason: delivery Last Admin: 01/29/17 11:56 Dose: 1,000 ml Terbutaline Sulfate (Brethine) 0.25 mg SUBCUT ASDIRECTED PRN PRN Reason: Tacysystole - Infant Interaction Disposition, : in Room with Family Feeding: Attempted ; Nursed Fair/Poor Support Person: Significant Other - Recovery Exam Fundal Tone: Firm Fundal Level: 1 Fingerbreadths Below Umbilicus Fundal Placement: Midline Lochia Amount: Scant Lochia Color: Rubra/Red Perineum Description: Intact, Minimal Bruising/Swelling Other Perinuem Description: 2nd degree laceration Episiotomy/Laceration: Approximated Bladder Status: Voiding Urinary Elimination: Voided - Exam General: alert, oriented HEENT: Pupils equal Neck: supple Lungs: Clear to auscultation, Normal respiratory effort Cardiovascular: Regular Rate, Regular Rhythm Abdomen: bowel sounds present, soft, no tenderness, no distension Extremities: No: no edema (trace) Skin: warm, dry, intact Neurological: no new focal deficit Psy/Mental Status: alert, normal affect, normal mood - Problem List & Annotations (1) Pre-eclampsia, delivered SNOMED Code(s): 850328871 Code(s): O14.94 - UNSPECIFIED PRE-ECLAMPSIA, COMPLICATING CHILDBIRTH Status : Acute Current Visit: Yes - Problem List Review Problem List Initiated/Reviewed/Updated: Yes - My Orders Last 24 Hours: My Active Orders 01/30/17 Lunch Regular Diet [DIET] - Assessment Assessment:: PPD1 induction for preeclampsia, denies shortness of breath, vitals stable, Discussed hemoglobin 6.7, she denies any symptoms would like to go home today. - Plan Plan:: Recheck H&H after lunch, if stable dismiss to home. Discharge instructions reviewed. Reviewed OTC iron supplement, continue vitamins while .
[2017-01-31 12:35] VITALS: BP 125/64
[2017-01-31] MEDS ORDERED: Measles, Mumps & Rubella Vaccine 0.5 ML SDV SUBCUT ONE (14:00)
== END 2017-01-31 15:16 | disposition home or self-care (01) | DRG 560 ==
LOC: MW.OB 13:49 → MW.OBCHECK 13:49 → MW.OB 14:10 → MW.OBCHECK 14:10 → MW.OB 16:09 → OBSVTOIN 01-29 12:38 → MW.OB 01-29 17:38
PROVIDERS: ADMIT Obstetrics & Gynecology; ATTEND Obstetrics & Gynecology
PROC: 10E0XZZ Delivery of Products of Conception, External Approach (ICD-10-PCS; principal; 2017-01-29)
PROC: 0KQM0ZZ Repair Perineum Muscle, Open Approach (ICD-10-PCS; 2017-01-29)
PROC: 3E033VJ Introduction of Other Hormone into Peripheral Vein, Percutaneous Approach (ICD-10-PCS; 2017-01-29)
DX: O14.04 Mild to moderate pre-eclampsia, complicating childbirth (principal); O70.1 Second degree perineal laceration during delivery; O99.02 Anemia complicating childbirth; R42 Dizziness and giddiness; Z3A.38 38 weeks gestation of pregnancy; Z37.0 Single live birth
CPT/HCPCS: 01967; 36415; 51703; 59025; 80053; 83735; 84550; 85014; 85018; 85027; 86850; 86900; 86901; 90707; A9270-GY; J2590; J3475; J7040

== ENCOUNTER 2018-03-06 18:07 | Emergency (ER) | payer BC ==
--- NOTE | 2018-03-06 18:13 | EDM.PDOC ---
ED HPI GENERAL MEDICAL PROBLEM - General Stated Complaint: LEFT ANKLE PAIN Time Seen by Provider: 03/06/18 18:08 - History of Present Illness INITIAL COMMENTS - FREE TEXT/NARRATIVE: HISTORY AND PHYSICAL: History of present illness: Patient's 22-year-old female presenting concern of acute left ankle injury that occurred yesterday when she twisted her ankle she denies other tremor concern Review of systems: As per history of present illness and below otherwise all systems reviewed and negative. Past medical history: As per history of present illness and as reviewed below otherwise noncontributory. Surgical history: As per history of present illness and as reviewed below otherwise noncontributory. Social history: No reported history of drug or alcohol abuse. Family history: As per history of present illness and as reviewed below otherwise noncontributory. Physical exam: HEENT: Atraumatic, normocephalic, pupils reactive, negative for conjunctival pallor or scleral icterus, mucous membranes moist, throat clear, neck supple, nontender, trachea midline. Lungs: Clear to auscultation, breath sounds equal bilaterally, chest nontender. Heart: S1S2, regular, negative for clicks, rubs, or JVD. Abdomen: Soft, nondistended, nontender. Negative for masses or hepatosplenomegaly. Negative for costovertebral tenderness. Pelvis: Stable nontender. Genitourinary: Deferred. Rectal: Deferred. Extremities: Left ankle has some small swelling in the region lateral malleolus with small ecchymosis no point tenderness no proximal fibula tenderness Achilles tendon is intact CMS and neurovascular exam are normal Neuro: Awake, alert, oriented. Cranial nerves II through XII unremarkable. Cerebellum unremarkable. Motor and sensory unremarkable throughout. Exam nonfocal. Diagnostics: X-ray left ankle Therapeutics: None Impression: #1 left ankle injury Definitive disposition and diagnosis as appropriate pending reevaluation and review of above. - Related Data Allergies Allergy/AdvReac Type Severity Reaction Status Date / Time No Known Allergies Allergy Verified 07/05/16 22:53 Home Meds: Home Meds Vit No.129/Iron/FA [ Tablet] 1 each PO DAILY 07/05/16 [History] Past Medical History HEENT History: Reports: None Cardiovascular History: Reports: None Respiratory History: Reports: Asthma (Has not used inhaler for years) Gastrointestinal History: Reports: GERD Genitourinary History: Reports: None [employer] History: Reports: Musculoskeletal History: Reports: None Neurological History: Reports: None Psychiatric History: Reports: None Endocrine/Metabolic History: Reports: None Hematologic History: Reports: None Immunologic History: Reports: None Oncologic (Cancer) History: Reports: None Dermatologic History: Reports: None - Past Surgical History HEENT Surgical History: Reports: Oral Surgery Social & Family History - Family History Family Medical History: Noncontributory - Caffeine Use Caffeine Use: Reports: Soda ED ROS GENERAL - Review of Systems Review Of Systems: ROS reveals no pertinent complaints other than HPI. ED EXAM, GENERAL - Physical Exam Exam: See Below (See dictation) Course - Orders/Labs/Meds Orders: Active Orders 24 hr Category Date Time Status Ankle Min 3V Lt [CR] Stat Exams 03/06/18 18:08 Ordered Departure - Departure Time of Disposition: 18:13 Disposition: Home, Self-Care 01 Condition: Good Clinical Impression: Ankle injury - Discharge Information Additional Instructions: The following information is given to patients seen in the emergency department who are being discharged to home. This information is to outline your options for follow-up care. We provide all patients seen in our emergency department with a follow-up referral. The need for follow-up, as well as the timing and circumstances, are variable depending upon the specifics of your emergency department visit. If you don't have a primary care physician on staff, we will provide you with a referral. We always advise you to contact your personal physician following an emergency department visit to inform them of the circumstance of the visit and for follow-up with them and/or the need for any referrals to a consulting specialist. The emergency department will also refer you to a specialist when appropriate. This referral assures that you have the opportunity for followup care with a specialist. All of these measure are taken in an effort to provide you with optimal care, which includes your followup. Under all circumstances we always encourage you to contact your private physician who remains a resource for coordinating your care. When calling for followup care, please make the office aware that this follow-up is from your recent emergency room visit. If for any reason you are refused follow-up, please contact the [facility] emergency department at and asked to speak to the emergency department charge nurse. Motrin/Tylenol as directed and follow-up primary medical doctor as needed as discussed return as needed as discussed - My Orders Last 24 Hours: My Active Orders 03/06/18 18:08 Ankle Min 3V Lt [CR] Stat - Assessment/Plan Last 24 Hours: My Active Orders 03/06/18 18:08 Ankle Min 3V Lt [CR] Stat
[2018-03-06 20:06] VITALS: BP 127/90
--- NOTE | 2018-03-07 17:43 | CR ---
EXAM DATE: 03/06/18 PATIENT'S AGE: 22 Patient: TOMAS BILL Facility: [place], [place] Site . Site : 1995 Study: XRay Extremity Left ankle [id number] 6:40:17 PM Ordering Physician: Doctor Romano Final Report: INDICATION: fell down stairs yesterday LEFT ANKLE No fracture, dislocation, or destructive lesion of bone is seen. No significant arthritic changes or soft tissue abnormalities are identified. IMPRESSION: Negative left radiographs. GORDON BAI MD [facility] Dictated by: Marc Bai MD @ 03/06/2018 19:11:41 (Electronic Signature) Report Signed by Proxy. [facility]ENTER[facility]y
== END 2018-03-06 18:55 | disposition home or self-care (01) ==
LOC: MW.ED 18:07
DX: S90.02XA Contusion of left ankle, initial encounter (principal); W10.9XXA Fall (on) (from) unspecified stairs and steps, initial encounter
CPT/HCPCS: 73610-26-LT; 73610-LT; 99283

== ENCOUNTER 2018-11-16 13:18 | Emergency (ER) | payer BC ==
--- NOTE | 2018-11-16 13:55 | EDM.PDOC ---
ED HPI GENERAL MEDICAL PROBLEM - General Chief Complaint: Laceration Stated Complaint: TOOTH PICK IN FOOT Time Seen by Provider: 11/16/18 13:54 Source of Information: Reports: Patient History Limitations: Reports: No Limitations - History of Present Illness INITIAL COMMENTS - FREE TEXT/NARRATIVE: HISTORY AND PHYSICAL: Patient is a 22-year-old female here with complaint of toothpick in her foot. She states she stepped on a toothpick this morning and it broke off. She states it is painful to walk on. Denies fevers or chills and is otherwise in her usual state of health. Review of systems: As per history of present illness and below otherwise all systems reviewed and negative. Past medical history: As per history of present illness and as reviewed below otherwise noncontributory. Surgical history: As per history of present illness and as reviewed below otherwise noncontributory. Social history: No reported history of drug or alcohol abuse. Family history: As per history of present illness and as reviewed below otherwise noncontributory. Physical exam: General: Patient sitting comfortably in no acute distress and nontoxic appearing HEENT: Atraumatic, normocephalic, pupils reactive, negative for conjunctival pallor or scleral icterus, mucous membranes moist, throat clear, neck supple, nontender, trachea midline. No meningeal signs. Lungs: Clear to auscultation, breath sounds equal bilaterally, chest nontender. Heart: S1S2, regular, negative for clicks, rubs, or overt murmur. Abdomen: Soft, nondistended, nontender. Negative for masses or hepatosplenomegaly. Negative for costovertebral tenderness. Pelvis: Stable nontender. Genitourinary: Deferred. Rectal: Deferred. Extremities: End of toothpick seen at the heel of the right foot flush with the skin. Atraumatic, negative for cords or calf pain. Neurovascular unremarkable. Neuro: Awake, alert, oriented. Cranial nerves II through XII unremarkable. Cerebellum unremarkable. Motor and sensory unremarkable throughout. Exam nonfocal. Notes: Diagnostics: None Therapeutics: [] Prescriptions: Keflex Impression: Foreign body foot Plan: 1. Take antibiotic as instructed 2. Follow up with primary care provider 3. Return to ED as needed as discussed Definitive disposition and diagnosis as appropriate pending reevaluation and review of above. 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: Musculoskeletal History: Reports: None Neurological History: Reports: None Psychiatric History: Reports: None Endocrine/Metabolic History: Reports: None Hematologic History: Reports: None Immunologic History: Reports: None Oncologic (Cancer) History: Reports: None Dermatologic History: Reports: None - Infectious Disease History Infectious Disease History: Reports: Chicken Pox - Past Surgical History HEENT Surgical History: Reports: Oral Surgery GI Surgical History: Reports: Cholecystectomy Social & Family History - Family History Family Medical History: Noncontributory - Tobacco Use Smoking Status *Q: Never Smoker - Caffeine Use Caffeine Use: Reports: None - Recreational Drug Use Recreational Drug Use: No ED ROS GENERAL - Review of Systems Review Of Systems: ROS reveals no pertinent complaints other than HPI. ED EXAM, SKIN/RASH Exam: See Below (see dictation) Course - Vital Signs Last Recorded V/S: Last Vital Signs Temp 97.6 F 11/16/18 13:34 Pulse 108 H 11/16/18 13:34 Resp 18 11/16/18 13:34 BP 119/92 H 11/16/18 13:34 Pulse Ox 96 11/16/18 13:34 - Orders/Labs/Meds Meds: Medications Discontinued Medications Generic Name Dose Route Start Last Admin Trade Name Warner PRN Reason Stop Dose Admin Lidocaine HCl 5 ml 11/16/18 13:35 Xylocaine-Mpf 1% INJECT 11/16/18 13:36 ONETIME ONE Departure - Departure Time of Disposition: 14:14 Disposition: Home, Self-Care 01 Condition: Good Clinical Impression: Foreign body in foot - Discharge Information Prescriptions: Cephalexin [Keflex] 500 mg PO BID 7 Days #14 capsule Referrals: PCP,Unknown [Primary Care Provider] - Forms: ED Department Discharge Additional Instructions: The following information is given to patients seen in the emergency department who are being discharged to home. This information is to outline your options for follow-up care. We provide all patients seen in our emergency department with a follow-up referral. The need for follow-up, as well as the timing and circumstances, are variable depending upon the specifics of your emergency department visit. If you don't have a primary care physician on staff, we will provide you with a referral. We always advise you to contact your personal physician following an emergency department visit to inform them of the circumstance of the visit and for follow-up with them and/or the need for any referrals to a consulting specialist. The emergency department will also refer you to a specialist when appropriate. This referral assures that you have the opportunity for follow-up care with a specialist. All of these measure are taken in an effort to provide you with optimal care, which includes your follow-up. Under all circumstances we always encourage you to contact your private physician who remains a resource for coordinating your care. When calling for follow-up care, please make the office aware that this follow-up is from your recent emergency room visit. If for any reason you are refused follow-up, please contact the [facility] Emergency Department at and asked to speak to the emergency department charge nurse. [facility] [address] [place] [id number] [facility] [address] [place] [id number] 1. Take antibiotic as instructed 2. Follow up with primary care provider 3. Return to ED as needed as discussed
[2018-11-16 16:14] VITALS: BP 112/58
== END 2018-11-16 14:36 | disposition home or self-care (01) ==
LOC: MW.ED 13:18
DX: S90.851A Superficial foreign body, right foot, initial encounter (principal); W45.8XXA Other foreign body or object entering through skin, initial encounter
CPT/HCPCS: 99283

== ENCOUNTER 2018-12-14 05:33 | Emergency (ER) | payer BC ==
--- NOTE | 2018-12-14 06:00 | EDM.PDOC ---
ED HPI GENERAL MEDICAL PROBLEM - General Stated Complaint: LT FOOT HURTS Time Seen by Provider: 12/14/18 05:53 - History of Present Illness INITIAL COMMENTS - FREE TEXT/NARRATIVE: HISTORY AND PHYSICAL: History of present illness: Patient's 23-year-old female presents with a concern of acute left foot injury that occurred when she twisted it prior to arrival she denies other trauma concern Review of systems: As per history of present illness and below otherwise all systems reviewed and negative. Past medical history: As per history of present illness and as reviewed below otherwise noncontributory. Surgical history: As per history of present illness and as reviewed below otherwise noncontributory. Social history: No reported history of drug or alcohol abuse. Family history: As per history of present illness and as reviewed below otherwise noncontributory. Physical exam: HEENT: Atraumatic, normocephalic, pupils reactive, negative for conjunctival pallor or scleral icterus, mucous membranes moist, throat clear, neck supple, nontender, trachea midline. Lungs: Clear to auscultation, breath sounds equal bilaterally, chest nontender. Heart: S1S2, regular, negative for clicks, rubs, or JVD. Abdomen: Soft, nondistended, nontender. Negative for masses or hepatosplenomegaly. Negative for costovertebral tenderness. Pelvis: Stable nontender. Genitourinary: Deferred. Rectal: Deferred. Extremities: Left foot is tenderness and swelling over the dorsolateral aspect" there is no point tenderness Achilles tendon is intact CMS neurovascular exam is unremarkable Neuro: Awake, alert, oriented. Cranial nerves II through XII unremarkable. Cerebellum unremarkable. Motor and sensory unremarkable throughout. Exam nonfocal. Diagnostics: X-ray left foot Therapeutics: Ector wrap/crutches Impression: #1 acute left foot injury Definitive disposition and diagnosis as appropriate pending reevaluation and review of above. 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: Musculoskeletal History: Reports: None Neurological History: Reports: None Psychiatric History: Reports: None Endocrine/Metabolic History: Reports: None Hematologic History: Reports: None Immunologic History: Reports: None Oncologic (Cancer) History: Reports: None Dermatologic History: Reports: None - Infectious Disease History Infectious Disease History: Reports: Chicken Pox - Past Surgical History HEENT Surgical History: Reports: Oral Surgery GI Surgical History: Reports: Cholecystectomy Social & Family History - Family History Family Medical History: Noncontributory - Caffeine Use Caffeine Use: Reports: None ED ROS GENERAL - Review of Systems Review Of Systems: ROS reveals no pertinent complaints other than HPI. ED EXAM, GENERAL - Physical Exam Exam: See Below (See dictation) Course - Vital Signs Last Recorded V/S: Last Vital Signs Temp 36.3 C 12/14/18 06:07 Pulse 90 12/14/18 06:07 Resp 14 12/14/18 06:07 BP 107/74 12/14/18 06:07 Pulse Ox 97 12/14/18 06:07 - Orders/Labs/Meds Orders: Active Orders 24 hr Category Date Time Status Foot 2V Lt [CR] Stat Exams 12/14/18 05:54 Taken Departure - Departure Time of Disposition: 06:41 Disposition: Home, Self-Care 01 Condition: Good Clinical Impression: Foot injury - Discharge Information Referrals: PCP,None [Primary Care Provider] - Additional Instructions: The following information is given to patients seen in the emergency department who are being discharged to home. This information is to outline your options for follow-up care. We provide all patients seen in our emergency department with a follow-up referral. The need for follow-up, as well as the timing and circumstances, are variable depending upon the specifics of your emergency department visit. If you don't have a primary care physician on staff, we will provide you with a referral. We always advise you to contact your personal physician following an emergency department visit to inform them of the circumstance of the visit and for follow-up with them and/or the need for any referrals to a consulting specialist. The emergency department will also refer you to a specialist when appropriate. This referral assures that you have the opportunity for followup care with a specialist. All of these measure are taken in an effort to provide you with optimal care, which includes your followup. Under all circumstances we always encourage you to contact your private physician who remains a resource for coordinating your care. When calling for followup care, please make the office aware that this follow-up is from your recent emergency room visit. If for any reason you are refused follow-up, please contact the [facility] emergency department at and asked to speak to the emergency department charge nurse. Ector wrap crutches as directed and Motrin/Tylenol as directed follow-up primary medical doctor as needed as discussed and return as needed as discussed - My Orders Last 24 Hours: My Active Orders 12/14/18 05:54 Foot 2V Lt [CR] Stat - Assessment/Plan Last 24 Hours: My Active Orders 12/14/18 05:54 Foot 2V Lt [CR] Stat
[2018-12-14 06:10] VITALS: BP 107/74
--- NOTE | 2018-12-14 06:45 | CR ---
INDICATION: Foot pain following fall TECHNIQUE: Foot radiograph 2 views left COMPARISON: None FINDINGS: Bone: No acute fractures or aggressive bone lesions are identified. Joint: The visualized hindfoot, midfoot, and forefoot joints are unremarkable in appearance. No significant ankle effusion is seen. Soft tissue: Unremarkable. No radiopaque foreign bodies are seen. IMPRESSION: 1. No acute osseous injuries or abnormalities are noted. Dictated by: Adam Nicole MD @ 12/14/2018 06:43:36 (Electronically Signed)
== END 2018-12-14 07:09 | disposition home or self-care (01) ==
LOC: MW.ED 05:33
DX: S99.922A Unspecified injury of left foot, initial encounter (principal); X50.1XXA Overexertion from prolonged static or awkward postures, initial encounter
CPT/HCPCS: 73620-26-LT; 73620-LT; 99283-25

== ENCOUNTER 2020-09-25 13:17 | Emergency (ER) | payer BC ==
--- NOTE | 2020-09-25 14:23 | EDM.PDOC ---
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 Patient states that she was playing with her 3-year-old and her and her was sitting on her lower abdomen and tickling her. Patient states that after her sat up she, she had some suprapubic cramping and was concerned about her IUD getting dislodged. Patient states that she has not tried checking for her strings. Patient states that she is not currently having any abdominal pain or symptoms. Patient states she had the IUD placed in June by Dr. Zaman at [facility]. Patient denies fever, chills, chest pain, shortness of breath, or cough. Denies headache, neck stiff ness, change in vision, syncope, or near syncope. Denies nausea, vomiting, abdominal pain, diarrhea, constipation, or dysuria. Has not noted any blood in urine or stool. Patient has been eating and drinking appropriately. Review of systems: As per history of present illness and below otherwise all systems reviewed and negative. Past medical history: As per history of present illness and as reviewed below otherwise noncontributory. Surgical history: As per history of present illness and as reviewed below otherwise noncontributory. Social history: See social history for further information Family history: As per history of present illness and as reviewed below otherwise noncontributory. Physical exam: General: Patient is alert, oriented, and in no acute distress. Patient sitting comfortably on exam table. HEENT: Atraumatic, normocephalic, pupils equal and reactive bilaterally, negative for conjunctival pallor or scleral icterus, mucous membranes moist, TMs normal bilaterally, throat clear, neck supple, nontender, trachea midline. No drooling or trismus noted. No meningeal signs. No hot potato voice noted. Lungs: Clear to auscultation, breath sounds equal bilaterally, chest nontender. Heart: S1S2, regular rate and rhythm without overt murmur Abdomen: Soft, nondistended, nontender. Negative for masses or hepatosplenomegaly. Negative for costovertebral tenderness. Pelvis: Stable nontender. Genitourinary: Foot Specialist at bedside, Debra Gandara. External genitalia is grossly unremarkable. There is a moderate amount of white vaginal discharge in the vaginal vault. Negative cervical motion tenderness. Some mild suprapubic tenderness felt adnexal tenderness. Unable to discretely visualize IUD string. Rectal: Deferred. Skin: Intact, warm, dry. No lesions or rashes noted. Extremities: Atraumatic, negative for cords or calf pain. Neurovascular unremarkable. Neuro: Awake, alert, oriented. Cranial nerves II through XII unremarkable. Cerebellum unremarkable. Motor and sensory unremarkable throughout. Exam nonfocal. Notes: Signs and symptoms that would prompt return to the ED thoroughly discussed with patient. Discussed importance for follow-up with her CANCER PROGRAM DIRECTOR/consult provider. Voices understanding and is agreeable to plan of care. Denies any further questions or concerns at this time. Diagnostics: Endovaginal ultrasound, UA, urine hCG Therapeutics: None Prescription: Macrobid Impression: IUD evaluation Urinary tract infection Plan: 1. Follow-up with your women's health/CANCER PROGRAM DIRECTOR provider as discussed. Return to the ED as needed and as discussed. 2. Take medication as prescribed. Definitive disposition and diagnosis as appropriate pending reevaluation and r ashliw of above. 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: Musculoskeletal History: Reports: None Neurological History: Reports: None Psychiatric History: Reports: None Endocrine/Metabolic History: Reports: None Hematologic History: Reports: None Immunologic History: Reports: None Oncologic (Cancer) History: Reports: None Dermatologic History: Reports: None - Infectious Disease History Infectious Disease History: Reports: Chicken Pox - Past Surgical History HEENT Surgical History: Reports: Oral Surgery GI Surgical History: Reports: Cholecystectomy Social & Family History - Family History Family Medical History: No Pertinent Family History - Tobacco Use Tobacco Use Status *Q: Never Tobacco User - Caffeine Use Caffeine Use: Reports: None - Recreational Drug Use Recreational Drug Use: No ED ROS GENERAL - Review of Systems Review Of Systems: Comprehensive ROS is negative, except as noted in HPI. ED EXAM, GENERAL - Physical Exam Exam: See Below (see dictation) Course - Vital Signs Last Recorded V/S: Last Vital Signs Temp 97.1 F 09/25/20 17:40 Pulse 82 09/25/20 17:40 Resp 16 09/25/20 17:40 BP 122/72 09/25/20 17:40 Pulse Ox 98 09/25/20 17:40 - Orders/Labs/Meds Orders: Active Orders 24 hr Category Date Time Status CULTURE URINE [RM] Stat Lab 09/25/20 14:06 Received Labs: Laboratory Tests 09/25/20 09/25/20 Range/Units 14:06 14:06 Urine Color YELLOW Urine Appearance CLEAR Urine pH 7.0 (5.0-8.0) Ur Specific [place] 1.025 (1.001-1.035) Urine Protein NEGATIVE (NEGATIVE) mg/dL Urine Glucose (UA) NEGATIVE (NEGATIVE) mg/dL Urine Ketones NEGATIVE (NEGATIVE) mg/dL Urine Occult Blood NEGATIVE (NEGATIVE) Urine Nitrite NEGATIVE (NEGATIVE) Urine Bilirubin NEGATIVE (NEGATIVE) Urine Urobilinogen 1.0 (<2.0) EU/dL Ur Leukocyte Esterase TRACE H (NEGATIVE) Urine RBC NONE SEEN (0-2/HPF) Urine WBC 2-4 (0-5/HPF) Ur Epithelial Cells MODERATE (NONE-FEW) Amorphous Sediment LIGHT (NEGATIVE) Urine Bacteria 1+ H (NEGATIVE) Urine Mucus LIGHT (NONE-MOD) Urine HCG, Qual NEGATIVE (NEGATIVE) Meds: Medications Discontinued Medications Generic Name Dose Route Start Last Admin Trade Name Freq PRN Reason Stop Dose Admin Nitrofurantoin Macrocrystals 100 mg 09/25/20 17:30 09/25/20 17:33 Macrobid PO 09/25/20 17:31 100 mg ONETIME ONE Administration Nitrofurantoin Macrocrystals Confirm 09/25/20 17:31 09/25/20 17:48 Macrobid Administered 09/25/20 17:32 Not Given Dose 100 mg .ROUTE .STK-MED ONE Departure - Departure Time of Disposition: 17:18 Disposition: Home, Self-Care 01 Clinical Impression: IUD check up Urinary tract infection Qualifiers: Urinary tract infection type: acute cystitis Hematuria presence: without hematuria Qualified Code(s): N30.00 - Acute cystitis without hematuria - Discharge Information Prescriptions: Nitrofurantoin Monohyd/M-Cryst [Macrobid 100 mg Capsule] 100 mg PO BID 5 Days #10 capsule Instructions: Urinary Tract Infection, Adult, [id number] Referrals: PCP,None [Primary Care Provider] - Forms: ED Department Discharge Additional Instructions: The following information is given to patients seen in the emergency department who are being discharged to home. This information is to outline your options for follow-up care. We provide all patients seen in our emergency department with a follow-up referral. The need for follow-up, as well as the timing and circumstances, are variable depending upon the specifics of your emergency department visit. If you don't have a primary care physician on staff, we will provide you with a referral. We always advise you to contact your personal physician following an emergency department visit to inform them of the circumstance of the visit and for follow-up with them and/or the need for any referrals to a consulting specialist. The emergency department will also refer you to a specialist when appropriate. This referral assures that you have the opportunity for follow-up care with a specialist. All of these measure are taken in an effort to provide you with optimal care, which includes your follow-up. Under all circumstances we always encourage you to contact your private physician who remains a resource for coordinating your care. When calling for follow-up care, please make the office aware that this follow-up is from your recent emergency room visit. If for any reason you are refused follow-up, please contact the [facility] Emergency Department at and asked to speak to the emergency department charge nurse. [facility] [address] [place] [address] [id number] [address] [id number] [facility] [address] [place] [id number] 1. Follow-up with your women's health/CANCER PROGRAM DIRECTOR provider as discussed. Return to the ED as needed and as discussed. 2. Take medication as prescribed. Sepsis Event Note (ED) - Evaluation Sepsis Screening Result: No Definite Risk - Focused Exam Vital Signs: Vital Signs Temp Pulse Resp BP Pulse Ox 09/25/20 17:40 97.1 F 82 16 122/72 98 09/25/20 13:47 97.6 F 89 16 118/70 97 - My Orders Last 24 Hours: My Active Orders 09/25/20 14:06 CULTURE URINE [RM] Stat - Assessment/Plan Last 24 Hours: My Active Orders 09/25/20 14:06 CULTURE URINE [RM] Stat
--- NOTE | 2020-09-25 17:18 | US ---
INDICATION: IUD placement TECHNIQUE: Ultrasound pelvis transvaginal for better assessment or to better visualize the endometrium. Real time sonographic images with Spectral and color Doppler imaging of the ovaries were obtained. COMPARISON: None. FINDINGS: Uterus: 8.1 x 5.4 x 4.1 cm. An IUD is present and in customary position. Normal echotexture of the myometrium. No masses. Endometrium: Transvaginal imaging was performed to better evaluate the endometrium. 6 mm in thickness. No sign of endometrial mass or fluid. Right ovary: 3.9 x 2.5 x 4.6 cm. There is a heterogeneous area with peripheral vascularity measuring 2.6 x 2.5 cm. Normal color Doppler and spectral flow to the ovary is present. Left ovary: 4.2 x 3.4 x 2.3 cm. No ovarian or adnexal masses. Normal color Doppler and spectral flow to the ovary is present. Cul-de-sac: Trace free fluid. IMPRESSION: 1. IUD in customary position. 2. Focal heterogeneous area within the right ovary with peripheral vascularity, could represent an involuting corpus luteum cyst. Recommend follow-up pelvic ultrasound in 6-12 weeks to evaluate for resolution or stability. Dictated by Dian Etienne MD @ Sep 25 2020 5:11PM Signed by Dr. Dian Etienne @ Sep 25 2020 5:16PM
[2020-09-25] MEDS ORDERED: Nitrofurantoin Monohydrate/Macrocrystalline 100 MG Cap PO ONE (17:30)
[2020-09-25] MEDS ORDERED: Nitrofurantoin Monohydrate/Macrocrystalline 100 MG Cap ONE (17:31)
[2020-09-25 17:51] VITALS: BP 122/72; PULSE 82
== END 2020-09-25 17:45 | disposition home or self-care (01) ==
LOC: MW.ED 13:17
DX: N30.00 Acute cystitis without hematuria (principal); Z30.431 Encounter for routine checking of intrauterine contraceptive device
CPT/HCPCS: 76830; 81001; 81025; 87086; 99284; A9270; 99283

== ENCOUNTER 2023-08-04 09:49 | Emergency (ER) | payer BC ==
[2023-08-04 10:37] LABS: BASOPHILS ABSOLUTE AUTO 0.03 K/uL (0.00-0.20); BASOPHILS PERCENT AUTO 0.4 % (0.0-1.0); EOSINOPHILS ABSOLUTE AUTO 0.04 K/uL (0.00-0.45); EOSINOPHILS PERCENT AUTO 0.6 % (0.0-6.0); HEMATOCRIT 36.1 % (37.0-47.0); HEMOGLOBIN 12.7 g/dL (12.0-16.0); IMMATURE GRAN ABSOLUTE AUTO 0.01 K/uL (0.00-0.05); IMMATURE GRAN PERCENT AUTO 0.1 % (0.0-0.4); LYMPHOCYTES ABSOLUTE AUTO 1.91 K/uL (1.00-4.80); LYMPHOCYTES PERCENT AUTO 27.4 % (24.0-44.0); MEAN CORPUSCULAR HEMOGLOBIN 29.3 pg (28.0-32.0); MEAN CORPUSCULAR HGB CONC 35.2 g/dL (32.0-36.0); MEAN CORPUSCULAR VOLUME 83.4 fL (83.0-99.0); MEAN PLATELET VOLUME 10.8 fL (9.4-12.3); MONOCYTES ABSOLUTE AUTO 0.52 K/uL (0.00-0.80); MONOCYTES PERCENT AUTO 7.5 % (0.0-8.0); NEUTROPHILS ABSOLUTE AUTO 4.46 K/uL (1.80-7.70); PLATELET COUNT,PLT 252 K/uL (150-400); RED BLOOD CELL COUNT 4.33 M/uL (4.10-5.30); WHITE BLOOD CELL COUNT,WBC 6.97 K/uL (3.9-11.3)
[2023-08-04 10:41] LABS: APPEARANCE,URINE SLT CLOUDY; GLUCOSE,URINE NEGATIVE (NEGATIVE); KETONES,URINE TRACE mg/dL (NEGATIVE); LEUKOCYTE ESTERASE,URINE NEGATIVE (NEGATIVE); NITRITE,URINE NEGATIVE (NEGATIVE); OCCULT BLOOD,URINE LARGE (NEGATIVE); PROTEIN,URINE TRACE mg/dL (NEGATIVE)
[2023-08-04 10:47] LABS: BILIRUBIN,URINE SMALL (NEGATIVE); COLOR,URINE DARK YELLOW
[2023-08-04 10:54] LABS: BACTERIA,URINE 2+ (NEGATIVE); EPITHELIAL CELLS,URINE MODERATE (NONE-FEW); MUCUS,URINE LIGHT (NONE-MOD)
[2023-08-04 11:02] LABS: A/G RATIO 0.9 (0.9-1.6); ALBUMIN 3.9 g/dL (3.4-5.0); BILIRUBIN TOTAL 0.6 mg/dL (0.2-1.0); CALCIUM 9.4 mg/dL (8.5-10.1); CREATININE 0.8 mg/dL (0.6-1.0); EST CRCL DRUG DOSING (CG) 77.22 mL/min; POTASSIUM,K 3.7 mmol/L (3.5-5.1); PROTEIN TOTAL,TP 8.4 g/dL (6.4-8.2)
[2023-08-04 12:03] VITALS: BP 108/65; PULSE 87
== END 2023-08-04 12:01 | disposition home or self-care (01) ==
LOC: MW.ED 09:49
DX: O26.851 Spotting complicating pregnancy, first trimester (principal); O21.0 Mild hyperemesis gravidarum; O26.891 Other specified pregnancy related conditions, first trimester; R82.71 Bacteriuria; Z90.49 Acquired absence of other specified parts of digestive tract; Z3A.01 Less than 8 weeks gestation of pregnancy
CPT/HCPCS: 36415; 80053; 81001; 84702; 85025; 87086; 99283; 99284

== ENCOUNTER 2023-08-26 10:35 | Emergency (ER) | payer BC ==
[2023-08-26 11:01] LABS: BASOPHILS ABSOLUTE AUTO 0.03 K/uL (0.00-0.20); BASOPHILS PERCENT AUTO 0.3 % (0.0-1.0); EOSINOPHILS ABSOLUTE AUTO 0.09 K/uL (0.00-0.45); EOSINOPHILS PERCENT AUTO 0.9 % (0.0-6.0); HEMATOCRIT 37.6 % (37.0-47.0); HEMOGLOBIN 13.3 g/dL (12.0-16.0); IMMATURE GRAN ABSOLUTE AUTO 0.02 K/uL (0.00-0.05); IMMATURE GRAN PERCENT AUTO 0.2 % (0.0-0.4); LYMPHOCYTES ABSOLUTE AUTO 2.11 K/uL (1.00-4.80); MEAN CORPUSCULAR HEMOGLOBIN 29.5 pg (28.0-32.0); MEAN CORPUSCULAR HGB CONC 35.4 g/dL (32.0-36.0); MEAN CORPUSCULAR VOLUME 83.4 fL (83.0-99.0); MEAN PLATELET VOLUME 10.6 fL (9.4-12.3); MONOCYTES ABSOLUTE AUTO 0.74 K/uL (0.00-0.80); MONOCYTES PERCENT AUTO 7.7 % (0.0-8.0); NEUTROPHILS ABSOLUTE AUTO 6.62 K/uL (1.80-7.70); NEUTROPHILS PERCENT AUTO 68.9 % (41.0-71.0); PLATELET COUNT,PLT 276 K/uL (150-400); RED BLOOD CELL COUNT 4.51 M/uL (4.10-5.30); WHITE BLOOD CELL COUNT,WBC 9.61 K/uL (3.9-11.3)
[2023-08-26] MEDS ORDERED: Acetaminophen/HYDROcodone 325-5 MG Tab PO ONE (11:06)
[2023-08-26 11:27] LABS: INR 1.11 (0.86-1.11); PTT,PARTIAL THROMBOPLSTIN TIME 29.8 SEC (23.9-30.7)
[2023-08-26] MEDS ORDERED: Ondansetron 4 MG/2 ML SDV IVPUSH ONE (11:41)
[2023-08-26] MEDS ORDERED: Morphine 4 MG/ML Syringe IVPUSH ONE (11:41)
[2023-08-26] MEDS ORDERED: Sodium Chloride 0.9% 1,000 ML IV ONE (11:42)
[2023-08-26 11:50] LABS: A/G RATIO 0.8 (0.9-1.6); ALBUMIN 3.8 g/dL (3.4-5.0); BILIRUBIN TOTAL 0.6 mg/dL (0.2-1.0); CALCIUM 9.2 mg/dL (8.5-10.1); CARBON DIOXIDE,CO2 27.3 mmol/L (21.0-32.0); CREATININE 0.7 mg/dL (0.6-1.0); EST CRCL DRUG DOSING (CG) 88.25 mL/min; POTASSIUM,K 3.5 mmol/L (3.5-5.1); PROTEIN TOTAL,TP 8.3 g/dL (6.4-8.2)
[2023-08-27 07:39] VITALS: BP 102/60; PULSE 70
== END 2023-08-26 13:45 | disposition home or self-care (01) ==
LOC: MW.ED 10:35
DX: O03.9 Complete or unspecified spontaneous abortion without complication (principal); Z90.49 Acquired absence of other specified parts of digestive tract
CPT/HCPCS: 36415; 76817; 80053; 84702; 85025; 85610; 85730; 86850; 86900; 86901; 96361; 96374; 96375; 99284; J2270; J2405; J7030

== ENCOUNTER 2024-07-01 11:53 | Inpatient (IN) | payer BC ==
[2024-07-01] MEDS ORDERED: Sodium Chloride 0.9% 20 ML SDV IV PRN ×3 (12:01→19:01)
[2024-07-01] MEDS ORDERED: Sodium Chloride 0.9% 10 ML Syringe FLUSH PRN ×3 (12:01→19:01)
[2024-07-01] MEDS ORDERED: Sodium Chloride 0.9% 2.5 ML Syringe FLUSH PRN ×3 (12:01→19:01)
[2024-07-01 12:10] LABS: APPEARANCE,URINE SLT CLOUDY; BILIRUBIN,URINE SMALL (NEGATIVE); COLOR,URINE DARK YELLOW; GLUCOSE,URINE NEGATIVE (NEGATIVE); KETONES,URINE TRACE mg/dL (NEGATIVE); LEUKOCYTE ESTERASE,URINE MODERATE (NEGATIVE); NITRITE,URINE NEGATIVE (NEGATIVE); OCCULT BLOOD,URINE NEGATIVE (NEGATIVE); PROTEIN,URINE TRACE mg/dL (NEGATIVE)
[2024-07-01] MEDS ORDERED: Lidocaine 1% 50 ML MDV INJECT PRN (12:25)
[2024-07-01] MEDS ORDERED: Ondansetron 4 MG/2 ML SDV IVPUSH PRN (12:25)
[2024-07-01] MEDS ORDERED: Terbutaline 1 MG/ML SDV SUBCUT PRN (12:25)
[2024-07-01] MEDS ORDERED: Misoprostol 200 MCG Tab PO PRN (12:25)
[2024-07-01] MEDS ORDERED: Butorphanol 2 MG/ML SDV IVPUSH PRN (12:25)
[2024-07-01] MEDS ORDERED: Methylergonovine 0.2 MG/1 ML Amp IM PRN (12:25)
[2024-07-01] MEDS ORDERED: Carboprost Tromethamine 250 MCG/1 mL Vial IM PRN (12:25)
[2024-07-01] MEDS ORDERED: Water For Irrigation,Sterile 1,000 ML Container IRR PRN (12:25)
[2024-07-01 12:41] LABS: HEMATOCRIT 34.2 % (37.0-47.0); HEMOGLOBIN 11.4 g/dL (12.0-16.0); MEAN CORPUSCULAR HEMOGLOBIN 28.1 pg (28.0-32.0); MEAN CORPUSCULAR HGB CONC 33.3 g/dL (32.0-36.0); MEAN CORPUSCULAR VOLUME 84.2 fL (83.0-99.0); MEAN PLATELET VOLUME 12.6 fL (9.4-12.3); PLATELET COUNT,PLT 204 K/uL (150-400); RED BLOOD CELL COUNT 4.06 M/uL (4.10-5.30); WHITE BLOOD CELL COUNT,WBC 9.67 K/uL (3.9-11.3)
[2024-07-01] MEDS: Oxytocin/0.9 % Sodium Chloride 30 UNIT/500 ML BAG IV SCH ×2 (13:09→20:11)
[2024-07-01] MEDS: Lactated Ringers 1,000 ML IV SCH (13:10)
[2024-07-01 13:14] LABS: CREATININE,URINE RAND 190.4 mg/dL; PROTEIN CREATININE RATIO,URINE 0.4; PROTEIN,URINE RANDOM 68.5 mg/dL (<11.9)
[2024-07-01 14:44] LABS: A/G RATIO 0.5 (0.9-1.6); ALBUMIN 2.3 g/dL (3.4-5.0); BILIRUBIN TOTAL 0.4 mg/dL (0.2-1.0); CALCIUM 9.2 mg/dL (8.5-10.1); CREATININE 0.6 mg/dL (0.6-1.0); EST CRCL DRUG DOSING (CG) 102.06 mL/min; POTASSIUM,K 3.6 mmol/L (3.5-5.1); URIC ACID 4.1 mg/dL (2.6-7.2)
[2024-07-01] MEDS: Ropivacaine HCl/PF 400 MG in Premix Bag 1 BAG EPIDUR SCH (16:33)
[2024-07-01] MEDS ORDERED: ePHEDrine 50 MG/ML SDV IM PRN (16:42)
[2024-07-01] MEDS ORDERED: ePHEDrine 50 MG/ML SDV IVPUSH PRN (16:42)
[2024-07-01] MEDS ORDERED: Phenylephrine HCl In 0.9% NaCl 1 MG/10 ML Syringe IVPUSH PRN (16:42)
[2024-07-01] MEDS ORDERED: dexmedeTOMIDine HCl 200 MCG/2 ML SDV EPIDUR SCH (16:45)
[2024-07-01] MEDS: Labetalol 100 MG/20 ML MDV IVPUSH PRN (18:57)
[2024-07-01] MEDS ORDERED: Calcium Gluconate 10% 1 GM/10 ML SDV IV PRN (19:01)
[2024-07-01] MEDS: Magnesium Sulfate/Water Premix 20 GM/500 ML BAG IV SCH (19:20)
[2024-07-01] MEDS: Magnesium Sulfate/Water Premix 4 GM in Premix Bag 1 BAG IV ONE (19:20)
[2024-07-01] MEDS ORDERED: Docusate Sodium 100 MG Cap PO PRN (20:53)
[2024-07-01] MEDS ORDERED: oxyCODONE 5 MG Tab PO PRN (20:53)
[2024-07-01] MEDS ORDERED: Lanolin 100% Cream 7 GM Tube TOP PRN (20:53)
[2024-07-01] MEDS: Phenylephrine HCl In 0.9% NaCl 1 MG/10 ML Syringe ONE (21:08)
[2024-07-01] MEDS: Ropivacaine HCl/PF 200 ML ONE (21:08)
[2024-07-01] MEDS: Bupivacaine 0.5% 10 ML SDV INJECT ONE (21:09)
[2024-07-01] MEDS: Bupivacaine 0.5% 10 ML SDV ONE (21:09)
[2024-07-01] MEDS: Labetalol 100 MG/20 ML MDV ONE (21:10)
[2024-07-01] MEDS: NIFEdipine 30 MG Tab.ER PO SCH (21:12)
[2024-07-01 21:20] LABS: PH,UMBILICAL ARTERIAL 7.287 (7.18-7.38)
[2024-07-01 21:21] LABS: PH,UMBILICAL VENOUS 7.313 (7.25-7.45)
[2024-07-01] MEDS: Ibuprofen 800 MG Tab PO PRN (22:54)
[2024-07-01] MEDS: Witch Hazel Medicated Pads 40/Jar TOP PRN (22:55)
[2024-07-01] MEDS: Benzocaine/Menthol 20%-0.5% Spray 78 GM Cannister TOP PRN (22:55)
[2024-07-02] MEDS: Acetaminophen 500 MG Tab PO PRN (01:26)
[2024-07-02 05:32] LABS: HEMATOCRIT 31.8 % (37.0-47.0); HEMOGLOBIN 10.8 g/dL (12.0-16.0)
[2024-07-03 20:33] VITALS: BP 138/80
[2024-07-03 20:35] VITALS: PULSE 80
== END 2024-07-03 21:30 | disposition home or self-care (01) | DRG 560 ==
LOC: MW.OBCHECK 11:53 → MW.OB 11:55 → MW.OBCHECK 12:00 → MW.OB 12:25 → OBSVTOIN 20:10 → MW.OB 23:14
PROVIDERS: ADMIT Obstetrics & Gynecology; ATTEND Obstetrics & Gynecology
PROC: 10E0XZZ Delivery of Products of Conception, External Approach (ICD-10-PCS; principal; 2024-07-01)
DX: O14.14 Severe pre-eclampsia complicating childbirth (principal); Z37.0 Single live birth; Z3A.38 38 weeks gestation of pregnancy; O99.214 Obesity complicating childbirth
CPT/HCPCS: 36415; 51702; 59025; 59409; 80053; 81003; 82570; 82803; 83735; 84156; 84550; 85014; 85018; 85027; 86592; 86850; 86900; 86901; A9270-GY; J0665; J1921; J2371; J2590; J2795; J3475; J7120